=== PATIENT | female | born 1995 | race Caucasian/White ===

== ENCOUNTER 2023-06-21 16:43 | Emergency (ER) | payer BC, SELFPAY ==
[2023-06-21 16:46] VITALS: BP 134/93; BMI 23.2
[2023-06-21 18:20] VITALS: BMI 24.7
--- NOTE | 2023-06-21 18:49 | ED.GENMED ---
History of Present Illness
General
Chief Complaint: Dental Problem
Source: patient
Exam Limitations: none
Time Seen by Provider: 06/21/23 18:34
Travel History
Have you had any contact with someone who has COVID-19?: No
Do you have any symptoms of coronavirus? Fever > 100 degrees, chills, cough, shortness of breath, sore throat, loss of taste or smell, muscle aches, or headache?: No
History of Present Illness
History of Present Illness:
this is a 28yo female who presents with L lower jaw swelling. she states that she started with sx's 2 days ago. she saw her pcp today and was told she needed a CT of her neck. the pt could not get one scheduled and pcp wanted her to come to the ED.
she was told in the past that she needed a root canal on her L lower molar in the past but she did not pursue
Past History
Past History
ED Past Medical History: Other (possible MS (MR showed a demyelinating lesion))
Phy Exam
Physical Exam
Physical Exam:
CONSTITUTIONAL Vital signs reviewed, Patient alert and oriented to person, place and time. Well-appearing
HEAD atraumatic, normocephalic.
EYES eyelids normal to inspection, Extraocular muscles intact, Conjunctiva normal, Sclera normal.
ENT clear tenderness to palpation tooth 18. L mandibular TTP and swelling noted that is mild. no drainable fluctuance noted.
NECK normal range of motion, Trachea midline, no jugular venous distention.
RESP no respiratory distress
BACK No obvious deformities
UPPER EXTREMITY Gross Range of motion normal, gross motor strength normal
LOWER EXTREMITY Gross range of motion normal, Gross motor strength normal
NEURO Speech normal, No focal motor deficits include, James coma scale 15, Memory normal, Cranial Nerves intact to screening exam.
SKIN Skin warm, dry, and normal in color.
PSYCHIATRIC Patient oriented to person place and time, Normal affect.
Course
Orders/Labs/Results
Orders:
Orders
06/21/23 18:47
Penicillin V Potassium [Pen Vk] 500 mg PO NOW STA
Vital Signs
Initial and Last Documented VS:
Initial Vital Signs
Temp Pulse Resp BP Pulse Ox
98.7 F 85 16 134/93 100
06/21/23 16:46 06/21/23 16:46 06/21/23 16:46 06/21/23 16:46 06/21/23 16:46
Last Documented Vital Signs
Temp Pulse Resp BP Pulse Ox
98.7 F 85 16 134/93 100
06/21/23 16:46 06/21/23 16:46 06/21/23 16:46 06/21/23 16:46 06/21/23 16:46
MDM/Problems Addressed
MDM/Problems Addressed:
dental abscess
*Pulse Oximetry
Patient hypoxic: no
*Critical Care Note
Total Time (30-74mins, 75-104mins- exclusive of procedures): Not Applicable
Data Reviewed
Source: patient and family
Further Testing Considered But Not Given:
Consider CTA but clearly has a dental abscess. Neck is benign. No stridor
Patient Management
Escalation/DeEscalation of care consider admission/obs:
Clear dental abscess. Outpatient follow-up with dental. Treat with antibiotics. CT unnecessary.
ED Attending Note
-
Portions of this chart may have been created with voice recognition software.� Occasional wrong word or��sound alike� substitutions may have occurred due to the inherent limitations of voice recognition software.
Discharge Plan
Departure
Patient Disposition: Home (Routine Discharge)
Date of Disposition: 06/21/23
Time of Disposition: 18:53
Patient with high blood pressure during this ER visit?: Yes
Discharge Problem:
Abscess, dental
Instructions: Tooth Abscess (DC), BLOOD PRESSURE
Prescriptions:
New
penicillin V potassium 500 mg tablet
500 mg PO QID Qty: 28 0RF
No Action
levocetirizine [Xyzal] 5 mg Tablet
5 mg PO DAILY
Activity Restrictions/Additional Instructions:
Please see your dentist in the next 3 to 5 days for follow-up and reevaluation. Return immediately for fevers, vomiting, worsening symptoms or any other concerns.
Interventions
Interventions:
*Risk Screen - Suicide Last Done: 06/21/23 16:46
*General Assessment Last Done: 06/21/23 18:20
*Neglect/Abuse Screening Last Done: 06/21/23 16:46
ED- Fall Risk Assessment Last Done: 06/21/23 19:07
*ED COVID-19 Vaccine History Last Done: 06/21/23 16:46
*Nursing Disposition Last Done: 06/21/23 19:07
Discharge Date and Time
Print Language: FRENCH
[2023-06-21] MEDS: PEN VK 500 MG PO (19:03)
== END 2023-06-21 19:07 | disposition home or self-care (01) ==
LOC: EMR 16:43
PROVIDERS: EMERGENCY PHYSICIAN Emergency Medicine; FAMILY PHYSICIAN Family Medicine
DX: K04.7 Periapical abscess without sinus (principal); R03.0 Elevated blood-pressure reading, without diagnosis of hypertension
CPT/HCPCS: 99283

== ENCOUNTER 2023-12-26 15:42 | Emergency (ER) | payer BC, SELFPAY ==
[2023-12-26 15:42] VITALS: BMI 24.5
[2023-12-26 15:46] VITALS: BP 141/86
--- NOTE | 2023-12-26 15:48 | ED.GENMED ---
ED Provider Triage
<Raysa Morris PA-C - Last Filed: 12/26/23 15:51>
-
Patient seen by provider in Triage?: Seen in Triage
Attestation: A medical screening examination has been initiated by a qualified medical provider. Based on the assessment performed at this time, it has been determined that an emergent medical condition may exist and the patient has been informed
that further medical evaluation and possible additional diagnostic testing may be needed.
HPI: 28yoF here with atraumatic bruising x 1.5 weeks. Outpatient labs showed a platelet count of 15. No hx of hematologic disorders. Platelets were normal in June 2023.
GENERAL: Alert , in no apparent distress
EYE: No visual abnormalities.
NECK: Trachea midline
ENT: No visible abnormalities.
LUNGS: No acute respiratory distress
NEUROLOGICAL: Alert and oriented
SKIN: Skin intact. No visible changes.
MUSCULOSKELETAL: Moving extremities normally
PSYCH: Normal and appropriate interaction.
This is a medical evaluation conducted in person to initiate diagnostic evaluation and provide initial therapeutics. Please see further documentation by the treating clinician.
CBC, CMP, coags, HCG, and type and screen ordered.
History of Present Illness
<Raysa Morris PA-C - Last Filed: 12/26/23 15:51>
General
Chief Complaint: Abnormal Lab Value
Time Seen by Provider: 12/26/23 17:12
<Nate Nice Jr., PA-C - Last Filed: 12/26/23 18:55>
General
Source: patient and family
Exam Limitations: none
Nursing documentation reviewed up to this point in time: agreed with
History of Present Illness
History of Present Illness:
28-year-old female presenting to the emergency department today with concerns of low platelets found as an outpatient. It was 12 with outpatient labs with the primary care doctor. She had petechiae last week which seems to be improving but
otherwise does have some new bruising. Patient without any additional noticeable bleeding no chest pain shortness of breath no recent illnesses.
Past History
<Raysa Morris PA-C - Last Filed: 12/26/23 15:51>
Past History
ED Past Medical History: Other (possible MS (MR showed a demyelinating lesion))
Review of Systems
<Nate Nice Jr., PA-C - Last Filed: 12/26/23 18:55>
Review of Systems
Allergies reviewed?: Yes
All Other Systems: ROS reviewed and negative except as documented in HPI and ROS
Phy Exam
<Nate Nice Jr., PA-C - Last Filed: 12/26/23 18:55>
Physical Exam
Physical Exam:
GENERAL: Alert , in no apparent distress
EYE: pupils equal and reactive
NECK: Supple, no significant adenopathy.
ENT: o/p clr, mmm.
CARDIAC: Regular rate and rhythm .
LUNGS: Clear breath sounds bilaterally, no acute respiratory distress, no wheezes/rales/rhonchi
ABDOMEN: Soft, without focal tenderness, no r/g, no cvat
NEUROLOGICAL: Alert and oriented, no focal neuro deficits
SKIN: Scattered bruising throughout the upper and lower extremities no significant petechiae warm and dry, skin intact.
MUSCULOSKELETAL: No edema, well perfused.
PSYCH: Normal and appropriate interaction.
Course
<Raysa Morris PA-C - Last Filed: 12/26/23 15:51>
Orders/Labs/Results
Orders:
Orders
12/26/23 15:50
Test Result ONCE
12/26/23 16:05
Type+Screen Urgent
Complete Blood Count/With Diff Urgent
Comprehensive Metabolic Panel Urgent
HCG, Serum Qualitative Screen Urgent
PTT Urgent
Prothrombin Time Urgent
12/26/23 17:03
ABO2 Urgent
BBK Wristband Number:
Associate notified that ABO2 has been ordered: [id number]
Date: 12/26/23
Time: 16:17
Process Supervisor ID: [id number]
Abnormal Lab Results
12/26/23
16:05
RBC 3.87 L 10^6/uL
(4.20-5.40)
Hct 33.1 L %
(37.0-47.0)
MCH 31.8 H pg
(27.0-31.0)
MCHC 37.2 H g/dL
(33.0-37.0)
Plt Count 18 L* 10^3/uL
(130-400)
MPV 12.8 H fL
(7.4-10.4)
Creatinine 0.5 L mg/dL
(0.6-1.0)
Glucose 102 H mg/dl
(70-99)
12/26/23 16:05
12/26/23 16:05
Vital Signs
Initial and Last Documented VS:
Initial Vital Signs
Temp Pulse Resp BP Pulse Ox
98.2 F 104 18 141/86 100
12/26/23 15:46 12/26/23 15:46 12/26/23 15:46 12/26/23 15:46 12/26/23 15:46
Last Documented Vital Signs
Temp Pulse Resp BP Pulse Ox
98.3 F 87 14 128/83 100
12/26/23 16:00 12/26/23 16:00 12/26/23 16:00 12/26/23 16:00 12/26/23 16:00
<Nate Nice Jr., PA-C - Last Filed: 12/26/23 18:55>
Orders/Labs/Results
Orders:
Orders
12/26/23 15:50
Test Result ONCE
12/26/23 16:05
Type+Screen Urgent
Complete Blood Count/With Diff Urgent
Comprehensive Metabolic Panel Urgent
HCG, Serum Qualitative Screen Urgent
PTT Urgent
Prothrombin Time Urgent
12/26/23 17:03
ABO2 Urgent
BBK Wristband Number:
Associate notified that ABO2 has been ordered: [id number]
Date: 12/26/23
Time: 16:17
Process Supervisor ID: [id number]
Abnormal Lab Results
12/26/23
16:05
RBC 3.87 L 10^6/uL
(4.20-5.40)
Hct 33.1 L %
(37.0-47.0)
MCH 31.8 H pg
(27.0-31.0)
MCHC 37.2 H g/dL
(33.0-37.0)
Plt Count 18 L* 10^3/uL
(130-400)
MPV 12.8 H fL
(7.4-10.4)
Creatinine 0.5 L mg/dL
(0.6-1.0)
Glucose 102 H mg/dl
(70-99)
12/26/23 16:05
12/26/23 16:05
Vital Signs
Initial and Last Documented VS:
Initial Vital Signs
Temp Pulse Resp BP Pulse Ox
98.2 F 104 18 141/86 100
12/26/23 15:46 12/26/23 15:46 12/26/23 15:46 12/26/23 15:46 12/26/23 15:46
Last Documented Vital Signs
Temp Pulse Resp BP Pulse Ox
98.3 F 87 14 128/83 100
12/26/23 16:00 12/26/23 16:00 12/26/23 16:00 12/26/23 16:00 12/26/23 16:00
<Edreggie Nice Jr., PA-C - Last Filed: 12/26/23 18:55>
MDM/Problems Addressed
MDM/Problems Addressed:
28-year-old female presenting to the emergency department today with concerns of low platelets. Level of 18 here. Patient had some petechiae last week now some new episodes of bruising. Case was discussed with hematology pending prednisone 60 mg
daily and PPI otherwise will need CBC twice weekly and close outpatient follow-up. Stable for outpatient management return precautions given.
<Nate Nice Jr., PA-C - Last Filed: 12/26/23 18:55>
*Critical Care Note
Total Time (30-74mins, 75-104mins- exclusive of procedures): Not Applicable
ED Attending Note
<Raysa Morris PA-C - Last Filed: 12/26/23 15:51>
-
Portions of this chart may have been created with voice recognition software.� Occasional wrong word or��sound alike� substitutions may have occurred due to the inherent limitations of voice recognition software.
Discharge Plan
Departure
Patient Disposition: Home (Routine Discharge)
Date of Disposition: 12/26/23
Time of Disposition: 18:50
Patient with high blood pressure during this ER visit?: No
Condition: Good
Covid-19: Not Applicable
Discharge Problem:
Thrombocytopenia
Instructions: Immune thrombocytopenia (ITP)
Prescriptions:
New
prednisone 20 mg tablet
60 mg PO DAILY 6 Days Qty: 18 0RF
pantoprazole 40 mg tablet,delayed release (DR/EC)
40 mg PO DAILY Qty: 14 0RF
No Action
levocetirizine [Xyzal] 5 mg Tablet
5 mg PO DAILY
penicillin V potassium 500 mg tablet
500 mg PO QID Qty: 28 0RF
Referrals:
Kendell De Santiago, [Active] - Follow up in 5-7 days
Jose Augustine MD [Family Provider] -
Activity Restrictions/Additional Instructions:
You came to the emergency department today with concerns of low platelets. Here your platelet count was 18. Case was discussed with hematology they recommend 60 mg of prednisone daily as well as starting Protonix daily. Please follow closely with
the credit union manager and get a CBC twice weekly for close monitoring. Immediately return to the emergency department any worsening, new or concerning symptoms.
Interventions
Interventions:
*Risk Screen - Suicide Last Done: 12/26/23 15:46
*General Assessment Last Done: 12/26/23 15:46
*Neglect/Abuse Screening Last Done: 12/26/23 15:46
*ED COVID-19 Vaccine History Last Done: 12/26/23 15:46
Discharge Date and Time
Print Language: BURMESE
[2023-12-26 16:00] VITALS: BP 128/83
[2023-12-26 16:22] LABS: INR 1.05; PT 13.5 Sec (11.4-14.6)
[2023-12-26 16:23] LABS: APTT 29.2 Sec (23.4-35.0)
[2023-12-26 16:30] LABS: % Basophils 0.7 % (0-2); % Eosinophils 0.7 % (0-6); % Immature Granulocytes 0.3 % (0-0.5); % Lymphocytes 21.4 % (20.5-51.1); % Monocytes 3.6 % (1.7-9.3); % Neutrophils 73.3 % (42.2-75.2); Absolute Basophils 0.1 10^3/uL (0-0.2); Absolute Eosinophils 0.1 10^3/uL (0-0.7); Absolute Lymphocytes 1.5 10^3/uL (1.2-3.4); Absolute Monocytes 0.3 10^3/uL (0.1-0.6); Absolute Neutrophils 5.3 10^3/uL (1.4-6.5); Hematocrit 33.1 % (37.0-47.0); Hemoglobin 12.3 g/dL (12.0-16.0); Mean Corp Hgb Conc. 37.2 g/dL (33.0-37.0); Mean Corpuscular Hgb 31.8 pg (27.0-31.0); Mean Corpuscular Volume 85.5 fL (81.0-99.0); Mean Platelet Volume 12.8 fL (7.4-10.4); Nucleated Red Blood Cells % 0 %; Platelet Count 18 10^3/uL (130-400); Red Blood Cell Count 3.87 10^6/uL (4.20-5.40); Red Cell Dist. Width 11.9 % (11.5-14.5); White Blood Cell Count 7.2 10^3/uL (4.8-10.8)
[2023-12-26 16:33] LABS: HCG, Serum Qualitative Screen Negative
[2023-12-26 16:34] LABS: ALT (SGPT) 20 U/L (0-35); AST (SGOT) 32 U/L (14-36); Alkaline Phosphatase 63 U/L (38-126); Blood Urea Nitrogen 12 mg/dl (7-17); Calcium 9.4 mg/dl (8.4-10.2); Carbon Dioxide 23 mmol/L (22-30); Chloride 104 mmol/L (98-107); Glucose 102 mg/dl (70-99); Potassium 3.7 mmol/L (3.5-5.1); Sodium 139 mmol/L (135-145); Total Bilirubin 0.5 mg/dl (0.2-1.3); Total Protein 6.9 g/dl (6.3-8.2); eGFR > 60.00
[2023-12-26] MEDS: PROTONIX 40 MG PO (19:09)
[2023-12-26] MEDS: DELTASONE 60 MG PO (19:11)
== END 2023-12-26 19:39 | disposition home or self-care (01) ==
LOC: EMR 15:42
PROVIDERS: Physician Assistant; EMERGENCY PHYSICIAN Emergency Medicine; FAMILY PHYSICIAN Family Medicine
DX: D69.6 Thrombocytopenia, unspecified (principal)
CPT/HCPCS: 99282; 80053; 84703; 85025; 85610; 85730; 86850; 86900; 86901

== ENCOUNTER 2024-08-26 19:13 | Emergency (ER) | payer BC, SELFPAY ==
[2024-08-26 19:15] VITALS: BP 139/86
[2024-08-26] MEDS: ZOFRAN 4 MG IV (21:11)
[2024-08-26] MEDS: NSS 1000 IV (21:12)
[2024-08-26 21:20] VITALS: BP 108/74
[2024-08-26 21:31] LABS: % Basophils 0.3 % (0-2); % Eosinophils 0.3 % (0-6); % Immature Granulocytes 0.1 % (0-0.5); % Lymphocytes 19.5 % (20.5-51.1); % Neutrophils 73.8 % (42.2-75.2); Absolute Lymphocytes 1.8 10^3/uL (1.2-3.4); Absolute Monocytes 0.6 10^3/uL (0.1-0.6); Absolute Neutrophils 6.8 10^3/uL (1.4-6.5); Hematocrit 34.6 % (37.0-47.0); Hemoglobin 12.8 g/dL (12.0-16.0); Mean Corpuscular Hgb 32.1 pg (27.0-31.0); Mean Corpuscular Volume 86.7 fL (81.0-99.0); Mean Platelet Volume 9.2 fL (7.4-10.4); Nucleated Red Blood Cells % 0 %; Platelet Count 326 10^3/uL (130-400); Red Blood Cell Count 3.99 10^6/uL (4.20-5.40); Red Cell Dist. Width 11.3 % (11.5-14.5); Urine Albumin 2+ (Neg - Trace); Urine Bilirubin Negative (Negative); Urine Character Clear (Clear); Urine Color Yellow; Urine Glucose Negative (Negative); Urine Ketone 3+ (Negative); Urine Leukocyte 1+ (Negative); Urine Nitrite Negative (Negative); Urine Occult Blood 3+ (Negative); Urine Specific Gravity 1.025 (<1.030); Urine Urobilinogen Negative (Neg - 1+); White Blood Cell Count 9.2 10^3/uL (4.8-10.8)
[2024-08-26 21:38] LABS: Urine Squamous Cell >30 /LPF (Few)
[2024-08-26 21:40] LABS: Urine Bacteria Many (Negative)
[2024-08-26 21:42] LABS: Urine Yeast Few (Negative)
[2024-08-26 21:43] LABS: HCG, Serum Qualitative Screen Negative
[2024-08-26 21:48] LABS: ALT (SGPT) 16 U/L (0-35); AST (SGOT) 21 U/L (14-36); Albumin 4.7 g/dl (3.5-5.0); Alkaline Phosphatase 69 U/L (38-126); Blood Urea Nitrogen 13 mg/dl (7-17); Calcium 9.4 mg/dl (8.4-10.2); Carbon Dioxide 16 mmol/L (22-30); Chloride 111 mmol/L (98-107); Glucose 75 mg/dl (70-99); Lipase 48 U/L (23-300); Potassium 4.3 mmol/L (3.5-5.1); Sodium 139 mmol/L (135-145); Total Bilirubin 0.8 mg/dl (0.2-1.3); Total Protein 6.4 g/dl (6.3-8.2); eGFR > 60.00
[2024-08-26 22:00] VITALS: BP 98/68
--- NOTE | 2024-08-27 00:27 | ED.GENMED ---
History of Present Illness
General
Chief Complaint: Abdominal Symptoms
Source: patient
Exam Limitations: none
Time Seen by Provider: 08/26/24 20:38
Nursing documentation reviewed up to this point in time: agreed with
History of Present Illness
History of Present Illness:
Patient to ED with complaint of n/v. Symptoms started this afternoon. Denies fever/chills, abdominal pain, urinary symptoms. To ED accompanied by family
Past History
Past History
ED Past Medical History: Other (possible MS (MR showed a demyelinating lesion))
Review of Systems
Review of Systems
Allergies reviewed?: Yes
All Other Systems: ROS reviewed and negative except as documented in HPI and ROS
Constitutional: Reports no symptoms
EENT: Reports no symptoms
Respiratory: Reports no symptoms
Cardiac: Reports no symptoms
ABD/GI: Reports nausea and vomiting
: Reports no symptoms
Musculoskeletal: Reports no symptoms
Skin: Reports no symptoms
Neurological: Reports no symptoms
Psychiatric: Reports no symptoms
Phy Exam
General Physical Exam
General Presentation: mild distress
General age: appears stated age
General Skin: warm and dry
General Habitus: normal
General Mental: alert
Gastrointestinal Exam
Gastrointestinal Exam: normal bowel sounds, non tender, soft, no organomegaly, no pulsatile mass and non distended
Musculoskeletal Exam
Musculoskeletal Exam: full ROM and neuro vasc intact
Skin Exam
Skin Exam: normal color, warm/dry and no rash
Psychiatric Exam
Psychiatric Exam: normal mood/affect
Course
Orders/Labs/Results
Orders:
Orders
08/26/24 20:54
0.9% Sodium Chloride 1000 ml [Nss] 1,000 ml IV BOLUS
Ondansetron Injectable [Zofran] 4 mg IV NOW STA
08/26/24 20:55
Test Result ONCE
08/26/24 21:08
Complete Blood Count/With Diff Urgent
Comprehensive Metabolic Panel Urgent
HCG, Serum Qualitative Screen Urgent
Lipase Urgent
Urinalysis Reflex To Culture Urgent
Date Specimen was Collected: 08/26/24
Time Specimen was Collected: 20:59
Urine Microscopic Reflex Cult Urgent
Urine Culture Urgent
TRISTAN Source: U
Specimen Description:
Date Specimen was Collected: 08/26/24
Time Specimen was Collected: 20:59
Abnormal Lab Results
08/26/24
21:08
RBC 3.99 L 10^6/uL
(4.20-5.40)
Hct 34.6 L %
(37.0-47.0)
MCH 32.1 H pg
(27.0-31.0)
RDW 11.3 L %
(11.5-14.5)
Absolute Neuts (auto) 6.8 H 10^3/uL
(1.4-6.5)
Lymphocytes % 19.5 L %
(20.5-51.1)
Chloride 111 H mmol/L
(98-107)
Carbon Dioxide 16 L mmol/L
(22-30)
Urine Ketones 3+ A
(Negative)
Ur Occult Blood Reflex 3+ A
(Negative)
Leukocyte Esterase Rfl 1+ A
(Negative)
Urine RBC 3-6 A /HPF
(0-2)
Urine Bacteria (Reflex) Many A
(Negative)
Urine Yeast Few A
(Negative)
Urine Albumin (Reflex) 2+ A
(Neg - Trace)
08/26/24 21:08
08/26/24 21:08
Vital Signs
Initial and Last Documented VS:
Initial Vital Signs
Temp Pulse Resp BP Pulse Ox
98.2 F 98 20 139/86 99
08/26/24 19:15 08/26/24 19:15 08/26/24 19:15 08/26/24 19:15 08/26/24 19:15
Last Documented Vital Signs
Temp Pulse Resp BP Pulse Ox
98.2 F 98 20 98/68 100
08/26/24 19:15 08/26/24 19:15 08/26/24 19:15 08/26/24 22:00 08/26/24 22:15
*Pulse Oximetry
Patient hypoxic: no
*Critical Care Note
Total Time (30-74mins, 75-104mins- exclusive of procedures): Not Applicable
Update Note
Update Note:
Patient to ED with compaint of n/v. Improved with IVF and zofran. Labs reviewed, no concerning findings. Jacquelin is soft, nontender, BS throughout. Tolerating po fluids now and would like to go home. SHe is discharged home, rx for zofran
provided. Given instructions on s/s to return to ED and she is agreeable to plan
ED Attending Note
-
Portions of this chart may have been created with voice recognition software.� Occasional wrong word or��sound alike� substitutions may have occurred due to the inherent limitations of voice recognition software.
Discharge Plan
Departure
Patient Disposition: Home (Routine Discharge)
Date of Disposition: 08/26/24
Time of Disposition: 23:51
Patient with high blood pressure during this ER visit?: No
Condition: Good
Covid-19: Not Applicable
Discharge Problem:
Acute vomiting
Instructions: Clear Liquid Diet, Nausea and Vomiting, Adult (DC)
Prescriptions:
New
ondansetron 4 mg tablet,disintegrating
4 mg PO DAILY PRN (Reason: nausea and vomiting) 4 Days Qty: 12 0RF
No Action
levocetirizine [Xyzal] 5 mg Tablet
5 mg PO DAILY
penicillin V potassium 500 mg tablet
500 mg PO QID Qty: 28 0RF
prednisone 20 mg tablet
60 mg PO DAILY 6 Days Qty: 18 0RF
pantoprazole 40 mg tablet,delayed release (DR/EC)
40 mg PO DAILY Qty: 14 0RF
Referrals:
Jose Augustine MD [Family Provider, Family Practice] - Tomorrow
Activity Restrictions/Additional Instructions:
Return to the emergency department immediately for any changes in/worsening of your symptoms.
Interventions
Interventions:
*Risk Screen - Suicide Last Done: 08/26/24 19:15
*General Assessment Last Done: 08/26/24 19:15
*Neglect/Abuse Screening Last Done: 08/26/24 19:15
*ED- Fall Risk Assessment Last Done: 08/26/24 21:09
*ED COVID-19 Vaccine History Last Done: 08/26/24 21:09
*Nursing Disposition Last Done: 08/27/24 00:00
SX-Nionuw-Phdsrshggz Assessment Last Done: 08/26/24 21:09
Discharge Date and Time
Discharge Date/Time: 08/27/24 00:00
Print Language: THAI
== END 2024-08-27 | disposition home or self-care (01) ==
LOC: EMR 19:13
PROVIDERS: Nurse Practitioner; EMERGENCY PHYSICIAN Student in an Organized Health Care Education/Training Program; FAMILY PHYSICIAN Family Medicine
DX: R11.2 Nausea with vomiting, unspecified (principal)
CPT/HCPCS: 99284; 96374; 96361; 80053; 81003; 81015; 83690; 84703; 85025; 87086

== ENCOUNTER 2024-08-27 17:19 | Inpatient (IN) | payer BC, SELFPAY ==
[2024-08-27 11:36] VITALS: BP 130/86
--- NOTE | 2024-08-27 11:52 | ED.GENMED ---
History of Present Illness
<Jasimn Mancuso PA-C - Last Filed: 08/27/24 23:12>
General
Chief Complaint: Abdominal Symptoms
Source: patient
Exam Limitations: none
Time Seen by Provider: 08/27/24 11:44
Nursing documentation reviewed up to this point in time: agreed with
History of Present Illness
History of Present Illness:
Patient is a 29-year-old female who presents to the emergency department for evaluation of intractable nausea/vomiting and inability to tolerate p.o. intake at home. She reports that the symptoms began on Monday after taking Tylenol on an empty
stomach, which made her feel nauseous, leading to persistent vomiting. She has not been able to keep down water or any food without vomiting.
The patient also reports diarrhea and abdominal pain starting yesterday localized to the lower abdomen. She denies any associated fever, chills, urinary tract infection symptoms, or abnormal vaginal bleeding.
Patient was seen in the emergency department yesterday for similar symptoms however was discharged after symptomatic improvement following IV fluids and IV Zofran. Despite taking Zofran, the patient continues to vomit upon returning home.
Patient does report that she has been on multiple rounds of antibiotics over the past few months for sinusitis.
She denies smoking marijuana despite having a medical card and reports no recent significant dietary changes or exposures to sick contacts.
Past History
<Jasmin Mancuso PA-C - Last Filed: 08/27/24 23:12>
Past History
ED Past Medical History: Other (possible MS (MR showed a demyelinating lesion))
Review of Systems
<Jasmin Mancuso PA-C - Last Filed: 08/27/24 23:12>
Review of Systems
Allergies reviewed?: Yes
All Other Systems: ROS reviewed and negative except as documented in HPI and ROS
Phy Exam
<Jasmin Mancuso PA-C - Last Filed: 08/27/24 23:12>
Physical Exam
Physical Exam:
Vitals: Patient's vital signs are stable. Afebrile
General: No apparent distress.
Skin: Pale. Warm and dry, no rashes or lesions
Head: Normocephalic, atraumatic
Eyes: Sclera nonicteric. EOMs intact. No nystagmus.
Throat: Dry mucous membranes. Protecting airway
Neck: Normal ROM, no cervical spine tenderness, no meningismus
Cardiac: Regular rate and rhythm, no murmurs.
Pulm: Normal respiratory effort, no wheezes, rales, rhonchi heard on exam
.
Abdomen: Abdomen soft. Mild tenderness in left lower abdomen suprapubic region. No rebound tenderness or guarding.
Extremities: No evidence of cyanosis or edema. Palpable DP pulses
Neuro: AAOx3. Grossly intact.
Psychiatric: Normal affect.
Course
<Jasmin Mancuso PA-C - Last Filed: 08/27/24 23:12>
Orders/Labs/Results
Orders:
Orders
08/27/24 Breakfast
Clear Liquid
At Your Request: Full Participation
08/27/24 12:04
CDIFF [C difficile Antigen & Toxins] Urgent
TRISTAN Source: Feces/Stool
Specimen Description:
Stool Culture Urgent
TRISTAN Source: Feces/Stool
Specimen Description:
0.9% Sodium Chloride 1000 ml [Nss] 1,000 ml IV BOLUS
Famotidine [Pepcid] 20 mg IV NOW STA
Ondansetron Injectable [Zofran] 4 mg IV NOW STA
Test Result ONCE
08/27/24 12:05
CT Abd/pelvis W Iv Cont Urgent
Comment:
Reason For Exam: Intractable N/V, lower abdominal pain
08/27/24 12:16
Complete Blood Count/With Diff Urgent
Comprehensive Metabolic Panel Urgent
HCG, Serum Qualitative Screen Urgent
Lipase Urgent
08/27/24 15:[address] [CT Sinuses W/o Iv Contrast] Urgent
Comment:
Reason For Exam: Right facial swelling
08/27/24 16:00
Dextrose 5%/0.45%Sodchl 1000ML [D5/0.45%NaCl] 1,000 ml IV 250 mls/hr
08/27/24 17:08
Admit/Transfer Patient As Directed
Co-Sign Provider:
Level of Care: Inpatient admission
Assign to:: Medical/Surgical
Physician / Group: mayela
Diagnosis: n/v
Reason for Hospitalization: n/v
Expected length of stay greater than two midnights?: Yes
ELOS- Estimated Length of Stay in days: 3
I certify the patient meets the requirements for IP care: Yes
Code Status As Directed
Resuscitation Status: Full Code
PRN Pain Medication Management As Directed
May give lesser potent ordered pain med per pt: Yes
preference::
Protocol:: Medication orders for pain may be administered in a
manner that supports deferring to patient preference
when the pt is:
- Requesting an ordered lesser potent pain medication.
Least to most potent pain medications are defined
as: acetaminophen < NSAID < tramadol < opioids
(morphine, oxycodone, hydromorphone).
- Requesting a lesser dose of the same medication IF
ORDERED.
- Requesting a less intrusive route of administration
if both routes are prescribed by the provider (PO <
IV).
08/27/24 18:35
0.9% Sodium Chloride 1000 ml [Nss] 1,000 ml IV 80 mls/hr
Acetaminophen [Tylenol] 650 mg PO Q4HPRN PRN
Sodium Bicarbonate 50 meq IV NOW STA
Accucheck [Bedside Glucose Monitoring] DIRECTED
Frequency: q4h
08/27/24 18:35
Activity As Directed
Activity Level: As Tolerated
Pneumatic Compression Sleeves As Directed
Type: Knee high
Vital Signs As Directed
Frequency: Per unit guidelines
DX Deep Vein Thrombosis Video Routine
08/28/24 06:00
Basic Metabolic Panel IN AM
08/29/24 06:00
Basic Metabolic Panel IN AM
08/30/24 06:00
Basic Metabolic Panel IN AM
Abnormal Lab Results
08/27/24 08/27/24 08/27/24
12:16 14:15 15:19
RBC 3.90 L 10^6/uL
(4.20-5.40)
Hct 34.8 L %
(37.0-47.0)
MCH 32.1 H pg
(27.0-31.0)
Neutrophils % 80.2 H %
(42.2-75.2)
Lymphocytes % 15.5 L %
(20.5-51.1)
Chloride 112 H mmol/L
(98-107)
Carbon Dioxide 15 L mmol/L
(22-30)
Glucose 62 L mg/dl
(70-99)
POC Glucose 56 L mg/dl 59 L mg/dl
(70-99) (70-99)
08/27/24 12:16
08/27/24 12:16
Vital Signs
Initial and Last Documented VS:
Initial Vital Signs
Temp Pulse Resp BP Pulse Ox
98.1 F 83 16 130/86 99
08/27/24 11:36 08/27/24 11:36 08/27/24 11:36 08/27/24 11:36 08/27/24 11:36
Last Documented Vital Signs
Temp Pulse Resp BP Pulse Ox
98.7 F 91 16 111/71 99
08/27/24 18:37 08/27/24 18:37 08/27/24 18:37 08/27/24 18:37 08/27/24 18:37
<Senthil Sotelo MD - Last Filed: 08/27/24 15:16>
Orders/Labs/Results
Orders:
Orders
08/27/24 Breakfast
Clear Liquid
At Your Request: Full Participation
08/27/24 12:04
CDIFF [C difficile Antigen & Toxins] Urgent
TRISTAN Source: Feces/Stool
Specimen Description:
Stool Culture Urgent
TRISTAN Source: Feces/Stool
Specimen Description:
0.9% Sodium Chloride 1000 ml [Nss] 1,000 ml IV BOLUS
Famotidine [Pepcid] 20 mg IV NOW STA
Ondansetron Injectable [Zofran] 4 mg IV NOW STA
Test Result ONCE
08/27/24 12:05
CT Abd/pelvis W Iv Cont Urgent
Comment:
Reason For Exam: Intractable N/V, lower abdominal pain
08/27/24 12:16
Complete Blood Count/With Diff Urgent
Comprehensive Metabolic Panel Urgent
HCG, Serum Qualitative Screen Urgent
Lipase Urgent
08/27/24 15:[address] [CT Sinuses W/o Iv Contrast] Urgent
Comment:
Reason For Exam: Right facial swelling
08/27/24 16:00
Dextrose 5%/0.45%Sodchl 1000ML [D5/0.45%NaCl] 1,000 ml IV 250 mls/hr
08/27/24 17:08
Admit/Transfer Patient As Directed
Co-Sign Provider:
Level of Care: Inpatient admission
Assign to:: Medical/Surgical
Physician / Group: mayela
Diagnosis: n/v
Reason for Hospitalization: n/v
Expected length of stay greater than two midnights?: Yes
ELOS- Estimated Length of Stay in days: 3
I certify the patient meets the requirements for IP care: Yes
Code Status As Directed
Resuscitation Status: Full Code
PRN Pain Medication Management As Directed
May give lesser potent ordered pain med per pt: Yes
preference::
Protocol:: Medication orders for pain may be administered in a
manner that supports deferring to patient preference
when the pt is:
- Requesting an ordered lesser potent pain medication.
Least to most potent pain medications are defined
as: acetaminophen < NSAID < tramadol < opioids
(morphine, oxycodone, hydromorphone).
- Requesting a lesser dose of the same medication IF
ORDERED.
- Requesting a less intrusive route of administration
if both routes are prescribed by the provider (PO <
IV).
08/27/24 18:35
0.9% Sodium Chloride 1000 ml [Nss] 1,000 ml IV 80 mls/hr
Acetaminophen [Tylenol] 650 mg PO Q4HPRN PRN
Sodium Bicarbonate 50 meq IV NOW STA
Accucheck [Bedside Glucose Monitoring] DIRECTED
Frequency: q4h
08/27/24 18:35
Activity As Directed
Activity Level: As Tolerated
Pneumatic Compression Sleeves As Directed
Type: Knee high
Vital Signs As Directed
Frequency: Per unit guidelines
DX Deep Vein Thrombosis Video Routine
08/28/24 06:00
Basic Metabolic Panel IN AM
08/29/24 06:00
Basic Metabolic Panel IN AM
08/30/24 06:00
Basic Metabolic Panel IN AM
Abnormal Lab Results
08/27/24 08/27/24 08/27/24
12:16 14:15 15:19
RBC 3.90 L 10^6/uL
(4.20-5.40)
Hct 34.8 L %
(37.0-47.0)
MCH 32.1 H pg
(27.0-31.0)
Neutrophils % 80.2 H %
(42.2-75.2)
Lymphocytes % 15.5 L %
(20.5-51.1)
Chloride 112 H mmol/L
(98-107)
Carbon Dioxide 15 L mmol/L
(22-30)
Glucose 62 L mg/dl
(70-99)
POC Glucose 56 L mg/dl 59 L mg/dl
(70-99) (70-99)
08/27/24 12:16
08/27/24 12:16
Vital Signs
Initial and Last Documented VS:
Initial Vital Signs
Temp Pulse Resp BP Pulse Ox
98.1 F 83 16 130/86 99
08/27/24 11:36 08/27/24 11:36 08/27/24 11:36 08/27/24 11:36 08/27/24 11:36
Last Documented Vital Signs
Temp Pulse Resp BP Pulse Ox
98.7 F 91 16 111/71 99
08/27/24 18:37 08/27/24 18:37 08/27/24 18:37 08/27/24 18:37 08/27/24 18:37
<Jasmin Mancuso PA-C - Last Filed: 08/27/24 23:12>
MDM/Problems Addressed
Differential Diagnosis Includes:
Not limited to: Gastritis, foodborne illness, C. difficile, IBS, pancreatitis, cyclical vomiting, etc.
MDM/Problems Addressed:
The patient, a 29-year-old female, presented to the emergency department with complaints of persistent nausea, vomiting, and newly developed lower abdominal discomfort. She had previously visited the ED last night, where she received intravenous
fluids and Zofran, after which she was discharged. However, upon returning home, she continued to experience intractable vomiting and was unable to tolerate oral intake. In the emergency department, she appeared stable and afebrile. Physical exam as
above. ED plan: labs, IVF, IV zofran, IV pepcid and given new onset abdominal discomfort- will obtain CT scan.
Update: Labs reviewed. CBC without clinically significant abnormalities. Chemistry reveals a metabolic acidosis and hypoglycemia likely secondary to poor PO intake. CT scan with possible ruptured adnexal cyst however no acute infectious pathology
identified. Ultimately suspect gastroenteritis. While patient has not vomited while in ED given significant acidosis and hypoglycemia feel patient should be admitted to hospital for further evaluation/management. Patient given D5 1/2 NS in ED.
Patient accepted to hospitalist service in stable condition.
Chronic conditions affecting care:
ITP
Acute Exacerbation and/or Progression of Chronic Illness:
N/A
<Jasmin Mancuso PA-C - Last Filed: 08/27/24 23:12>
*Radiology
Radiology exam reviewed: radiology read reviewed
*Pulse Oximetry
Patient hypoxic: no (99% on room air)
*EKG
Interpreted by ED Provider?: NA
*Clinical Assessment Manager Interpretation
Rate: Clinical Assessment Manager- N/A
*Critical Care Note
Total Time (30-74mins, 75-104mins- exclusive of procedures): Not Applicable
Data Reviewed
Review of Other/Old Records Reveals: Discharge Summary (ED discharge note from 08/26/2024 after presentation for similar symptoms-patient treated with IV fluids, IV Zofran with improvement in symptoms and discharged home)
<Jasmin Mancuso PA-C - Last Filed: 08/27/24 23:12>
Patient Management
Discussion with other providers: Hospitalist
Escalation/DeEscalation of care consider admission/obs:
Admit for further management given acidosis and hypoglycemia secondary to poor PO intake/ GI losses
ED Attending Note
<Jasmin Mancuso PA-C - Last Filed: 08/27/24 23:12>
-
Portions of this chart may have been created with voice recognition software.� Occasional wrong word or��sound alike� substitutions may have occurred due to the inherent limitations of voice recognition software.
<Senthil Sotelo MD - Last Filed: 08/27/24 15:16>
ED Attending Note
Patient seen and examined by attending physician: Yes
I performed the substantive portion of visit, reviewed & personally made and approve the management plan that is documented in note by myself or MONTEZ.: Yes
ED Attending Note:
Patient presents with ongoing and recurring vomiting. Was seen last night for same. Started vomiting again last night. Minimal epigastric pain. Some right cheek swelling. History of sinusitis. On immunosuppressive meds for ITP.
On exam patient is nontoxic in no distress. She has mild right cheek swelling. Teeth are normal. No intraoral issues. Neck is supple. Lungs are clear and equal. Abdomen is soft and nontender. Warm and dry perfusing well.
Labs show borderline hyperglycemia ongoing metabolic acidosis.
Given these ongoing issues along with being immunosuppressed I feel it prudent for patient to stay in the hospital. Will start D5 normal saline solution. Also will CT her sinuses.
Discharge Plan
Departure
Patient Disposition: Admit
Date of Disposition: 08/27/24
Time of Disposition: 16:26
Presentation/result/management discussed w/ accepting MD/DO: Hospitalist
Discharge Problem:
Hypoglycemia, Intractable nausea and vomiting
Interventions
Interventions:
*Risk Screen - Suicide Last Done: 08/27/24 11:36
*General Assessment Last Done: 08/27/24 11:40
*Neglect/Abuse Screening Last Done: 08/27/24 11:36
*ED- Fall Risk Assessment Last Done: 08/27/24 11:40
*ED COVID-19 Vaccine History Last Done: 08/27/24 11:40
*Nursing Disposition Last Done: 08/27/24 18:35
RA-Daflaf-Bjfjlxkxeq Assessment Last Done: 08/27/24 11:40
Discharge Date and Time
Discharge Date/Time: 08/27/24 18:36
[2024-08-27] MEDS: ZOFRAN 4 MG IV (12:14)
[2024-08-27] MEDS: PEPCID 20 MG IV (12:14)
[2024-08-27] MEDS: NSS 1000 IV ×2 (12:15→18:47)
[2024-08-27 12:22] VITALS: BP 115/79
[2024-08-27 12:33] LABS: % Basophils 0.4 % (0-2); % Eosinophils 0.1 % (0-6); % Immature Granulocytes 0.3 % (0-0.5); % Lymphocytes 15.5 % (20.5-51.1); % Monocytes 3.5 % (1.7-9.3); % Neutrophils 80.2 % (42.2-75.2); Absolute Lymphocytes 1.2 10^3/uL (1.2-3.4); Absolute Monocytes 0.3 10^3/uL (0.1-0.6); Absolute Neutrophils 6.2 10^3/uL (1.4-6.5); Hematocrit 34.8 % (37.0-47.0); Hemoglobin 12.5 g/dL (12.0-16.0); Mean Corp Hgb Conc. 35.9 g/dL (33.0-37.0); Mean Corpuscular Hgb 32.1 pg (27.0-31.0); Mean Corpuscular Volume 89.2 fL (81.0-99.0); Mean Platelet Volume 9.1 fL (7.4-10.4); Nucleated Red Blood Cells % 0 %; Platelet Count 294 10^3/uL (130-400); Red Cell Dist. Width 11.7 % (11.5-14.5); White Blood Cell Count 7.7 10^3/uL (4.8-10.8)
[2024-08-27 12:47] LABS: ALT (SGPT) 16 U/L (0-35); AST (SGOT) 23 U/L (14-36); Albumin 4.5 g/dl (3.5-5.0); Alkaline Phosphatase 67 U/L (38-126); Blood Urea Nitrogen 11 mg/dl (7-17); Calcium 9.1 mg/dl (8.4-10.2); Carbon Dioxide 15 mmol/L (22-30); Chloride 112 mmol/L (98-107); Glucose 62 mg/dl (70-99); HCG, Serum Qualitative Screen Negative; Lipase 60 U/L (23-300); Potassium 4.5 mmol/L (3.5-5.1); Sodium 140 mmol/L (135-145); Total Bilirubin 0.8 mg/dl (0.2-1.3); Total Protein 6.4 g/dl (6.3-8.2); eGFR > 60.00
[2024-08-27 14:16] LABS: Glucose - Point of Care 56 mg/dl (70-99)
[2024-08-27 15:20] LABS: Glucose - Point of Care 59 mg/dl (70-99)
[2024-08-27] MEDS: D5/0.45%NACL 1000 IV (15:44)
[2024-08-27 15:47] VITALS: BP 108/62
[2024-08-27 16:00] VITALS: BP 108/70
--- NOTE | 2024-08-27 16:42 | HPS.HSE ---
Family Physician
-
Family Physician: Jose Augustine MD
Chief Complaint
-
intractable nausea and vomitting.
History of Present Illness
29-year-old female with past medical history for sinusitis, ADD, migraines, neck pain, GERD, psoriasis who presents to the emergency department for evaluation of intractable nausea/vomiting and inability to tolerate p.o. intake at home since Monday.
She reports that the symptoms began on Monday after taking Tylenol on an empty stomach for facial pain from sinusitis which made her feel nauseous, leading to persistent vomiting. She has not been able to keep down water or any food without
vomiting. patient has chronic diarrhea. she is having some lower abdominal pain. she complained of chills. denied fever. she is complained of LEWIS, and dizzy. denied cough, congestion. denied dysuria or hematuria. she was on abx endo of June.
CT abdomen pelvis with no acute findings
CT of sinuses pending
Patient was noted hypoglycemic on arrival. Patient received fluids with D5. She also received a dose of Pepcid and Zofran in ER. C. difficile and stool cultures ordered in ER
Medical History
Past Medical History
Past Medical History: Reports Other
Additional Past Medical History:
Sinusitis
ITP
Migraines
Neck pain
GERD
Psoriasis
Past Surgical History: Reports Other
Additional Past Surgical History:
Oral surgery
Bone biopsy
Social History
Tobacco: Non-smoker
Alcohol: None
Drug: None
Living: With Family
Family History
Family History: Not pertinent
Allergies / Home Medications
Allergies reflects when Allergies were last updated in [facility].
Home Medications with original date entered in [facility] [facility]
Allergy/Medication List:
Allergies
Allergy/AdvReac Type Severity Reaction Status Date / Time
grape flavor Allergy Unknown Hives Verified 08/26/24 19:15
Sulfa (Sulfonamide Allergy Unknown Hives Verified 08/26/24 19:15
Antibiotics)
Home Medications
levocetirizine 5 mg tablet (Xyzal) 5 mg PO DAILY 03/29/23
penicillin V potassium 500 mg tablet 500 mg PO QID #28 tabs 06/21/23
pantoprazole 40 mg tablet,delayed release 40 mg PO DAILY #14 tabs 12/26/23
prednisone 20 mg tablet 60 mg (3 x 20 mg) PO DAILY 6 days #18 tabs 12/26/23
ondansetron 4 mg disintegrating tablet 4 mg PO DAILY PRN nausea and vomiting 4 days #12 tabs 08/26/24
Review of Systems
-
Constitutional: Reports Chills
EENT: Reports No Symptoms
Respiratory: Reports No Symptoms
Cardiac: Reports No Symptoms
Abdomen/GI: Reports Abdominal Pain, Nausea and Vomiting
: Reports No Symptoms
Musculoskeletal: Reports No Symptoms
Skin: Reports No Symptoms
Neurological: Reports No Symptoms
Endocrine: Reports No Symptoms
Hematologic/Lymphatic: Reports No Symptoms
Psych: Reports No Symptoms
Physical Exam
Vital Signs
Vital Signs
Temp Pulse Resp BP Pulse Ox
98.1 F 83 16 108/70 100
08/27/24 11:36 08/27/24 11:36 08/27/24 11:36 08/27/24 16:00 08/27/24 16:15
Physical Exam
General: Well Developed, Well Nourished and No Apparent Distress
HEENT: NormoCephalic, Moist mucous membranes and Atraumatic
Respiratory: Clear
Cardiac: S1/S2 and Regular Rhythm; No Murmur or Rub
GI: Soft, Non Tender, Non Distended and Normal Bowel Sounds; No Organomegaly
Rectal: Deferred by Provider
Musculoskeletal: No Clubbing, No Cyanosis and No Edema
Skin: No Rash
Neuro: AO x 3 and Nonfocal/grossly intact
Psych: Calm
Laboratory Results
-
08/27/24 12:16
08/27/24 12:16
Laboratory Results
Total Bilirubin 0.8 mg/dl (0.2-1.3) 08/27/24 12:16
AST 23 U/L (14-36) 08/27/24 12:16
ALT 16 U/L (0-35) 08/27/24 12:16
Alkaline Phosphatase 67 U/L (38-126) 08/27/24 12:16
Lipase 60 U/L (23-300) 08/27/24 12:16
Data Reviewed
-
CT Scan: Report Reviewed by me
Lab Data: Labs Reviewed by me
Impression/Plan
-
# Hypoglycemia secondary to poor oral intake/n/v
-continue to monitor
# intractable vomiting/abdominal pain unclear cause likely gastroenteritis
#chronic diarrhea
- CT abdomen pelvis with Likely small partially ruptured right adnexal/ovarian cyst with small volume free fluid in the right adnexa and right side of cul-de-sac.No intestinal obstruction, right lower quadrant inflammatory changes or free air,
intestinal tract1 limited without oral contrast.Three subcentimeter low-attenuation hepatic lesions too small to characterize.
- Stool for C. difficile, stool culture sent
-clear liquid diet, advance as tolerated
-ctm
# Metabolic acidosis likely due to GI losses/dehydration
- CO2 15
- Fluids continued for hydration
-bicarb push in ER.
# Right facial swelling/history of recent sinusitis
- CT sinuses pending
#hxt of sinusitis
-last use of abx was in June
#hxt of ITP
#migraines
#hx tof psoriasis
#DVT prophylaxis
-scd
#CODE status
-full code
--- NOTE | 2024-08-27 17:28 | W.PN.UPDATE ---
Update Note
Progress Note Update
This is an addendum to H&P written by Coretta Boucher 08/27/2024. �Patient seen and examined independently with WIRELESS TECHNICIAN.
29-year-old female past medical history of ITP, chronic sinusitis, migraines, GERD, psoriasis, chronic diarrhea from significant antibiotics recently for sinusitis presenting with vomiting since past 2 days and bilateral lower abdominal pain. �No
fever or chills.
Also with right facial pain chronic.
Patient was dizzy here and had blood sugar of 62. �She was given dextrose. �Labs show a bicarb of 15 with nongap metabolic acidosis.
CT abdomen pelvis shows likely small partially ruptured right adnexal/ovarian cyst with small volume free fluid in the right adnexa and right cul-de-sac.
Patient with likely viral gastroenteritis with metabolic acidosis from GI losses. �Hypoglycemia from decreased p.o. intake.
Stool studies pending. �Give bicarb push. �Clear liquid diet.
Sinus CT pending.
[2024-08-27 17:36] LABS: Glucose - Point of Care 144 mg/dl (70-99)
[2024-08-27 18:37] VITALS: BP 111/71; BMI 25.6
[2024-08-27] MEDS: SODIUM BICARBONATE 50 MEQ IV (18:47)
--- NOTE | 2024-08-27 19:12 | PTCARENOTE ---
Pt arrived from ED at 1830. Pt walked from stretcher to room. Pt connected to NS at 80ml/hr as ordered. Assessment completed and pt oriented to room. Pt has no current complaints. Plan of care ongoing.
[2024-08-27] MEDS: NEURONTIN 300 MG PO (20:17)
[2024-08-27 21:20] LABS: Glucose - Point of Care 75 mg/dl (70-99)
[2024-08-27 23:10] VITALS: BP 122/73
--- NOTE | 2024-08-28 04:32 | DOWNTIME ---
Addendum entered by Haley Francois RN 08/28/24 14:12:
Correction to downtime 08/28/2024 from 0100 to 08/28/24 at 0415.
Original Note:
There was a [employer] Client Tax Examining Technician Downtime on 08/27/2024 from 0100 to 08/28/2024 at 0415. Downtime documentation of patient's care, including medication administrations, has been reconciled in the electronic record per guidelines. Refer to the
patient's paper chart under the miscellaneous tab to see printed paper medication records and downtime forms.
[2024-08-28] MEDS: NSS 1000 IV (05:48)
[2024-08-28 06:09] LABS: Glucose - Point of Care 78 mg/dl (70-99)
[2024-08-28 06:35] LABS: Blood Urea Nitrogen 4 mg/dl (7-17); Calcium 8.3 mg/dl (8.4-10.2); Carbon Dioxide 18 mmol/L (22-30); Chloride 114 mmol/L (98-107); Estimated Creatinine Clearance 110 ml/min; Glucose 75 mg/dl (70-99); Potassium 3.7 mmol/L (3.5-5.1); Sodium 137 mmol/L (135-145); eGFR > 60.00
[2024-08-28 07:00] VITALS: BP 107/70
--- NOTE | 2024-08-28 07:06 | W.PN.HOSP.TC ---
Today's Communication/Plan
-
Discharge today
Assessment / Plan
Assessment / Plan
Physical Exam
General: Well Developed, Well Nourished and No Apparent Distress
HEENT: Normocephalic, Moist mucous membranes and Atraumatic
Respiratory: Clear to Auscultation Bilaterally
Cardiac: S1/S2 and Regular Rhythm; No Murmur or Rub
GI: Soft, Non Tender, Non Distended and Normal Bowel Sounds
Musculoskeletal: No Cyanosis and No Edema
Skin: Warm. Dry.
Neuro: AAO x 3 and Nonfocal/grossly intact
Psych: Calm
Assessment/Plan
29-year-old female past medical history of ITP, chronic sinusitis, migraines, GERD, psoriasis, chronic diarrhea from significant antibiotics recently for sinusitis presented with vomiting since 2 days prior to presentation and bilateral lower
abdominal pain. No fever or chills. Also with chronic right facial pain. Patient was initially dizzy here and had a blood sugar of 62. She was given dextrose. Labs showed a bicarb of [address] abdomen pelvis showed
likely small partially ruptured right adnexal/ovarian cyst with small volume free fluid in the right adnexa and right cul-de-sac. Patient with likely viral gastroenteritis with metabolic acidosis from GI losses. Hypoglycemia from decreased p.o.
intake.
#Hypoglycemia secondary to poor oral intake/n/v - RESOLVED
-RESOLVED
-Continue to monitor
-Upgrade diet to regular
#Intractable vomiting/abdominal pain unclear cause likely gastroenteritis - RESOLVED
#Chronic diarrhea - RESOLVED
-CT abdomen pelvis noted with ovarian ruptured right adnexal/ovarian cyst
#Metabolic acidosis - RESOLVED - likely due to GI losses/dehydration
-CO2 15, improved
-Fluids continued for hydration
-bicarb push in ER
#Right facial swelling - IMPROVED
#History of recent sinusitis
-CT sinuses showed moderate left nasal septal deviation
-last use of antibiotics was in June
#Likely small partially ruptured right adnexal/ovarian cyst with small volume free fluid in the right adnexa and right side of cul-de-sac
-Asked gynecology to evaluate given patient's presentation with abdominal pain, appreciate gynecology
-Per gynecology, no concerns from their standpoint, and patient can be discharged from their standpoint
-Follow-up with motion picture camera lens technician at [facility]
#History of ITP
#migraines
#History of psoriasis
#DVT prophylaxis
-scd
#CODE status
-full code
More than 30 minutes spent in discharge including
Final examination of the patient
Summarizing hospital stay
Instructions for continuing care to all relevant caregivers
Preparation of discharge records, prescriptions, and referral forms
Total time spent (in minutes): 36
Anticipated Discharge: Today
Subjective/Interval History
-
Date of Service: August 28, 2024
Patient was seen and examined. She reported that her abdominal pain, nausea, vomiting and diarrhea have all resolved. She reported feeling well and would like to be discharged today.
Objective Data
-
Labs:
Laboratory Results
08/28/24
05:40
Sodium 137
Potassium 3.7
Chloride 114 H
Carbon Dioxide 18 L
BUN 4 L
Creatinine 0.5 L
Glucose 75
Calcium 8.3 L
Vital Signs:
Vital Signs
Temp Pulse Resp BP Pulse Ox
98.3 F 91 18 122/73 98
08/27/24 23:10 08/27/24 23:10 08/27/24 23:10 08/27/24 23:10 08/27/24 23:10
[2024-08-28] MEDS: FEOSOL 325 MG PO (07:41)
[2024-08-28] MEDS: NEURONTIN 300 MG PO (07:41)
[2024-08-28] MEDS: PROTONIX 40 MG PO (07:41)
[2024-08-28] MEDS: LR 1000 IV (07:41)
[2024-08-28 08:18] LABS: Glucose - Point of Care 82 mg/dl (70-99)
[2024-08-28 08:18] LABS: Glucose - Point of Care 63 mg/dl (70-99)
[2024-08-28 08:19] LABS: Glucose - Point of Care 81 mg/dl (70-99)
[2024-08-28 09:52] LABS: Glucose - Point of Care 85 mg/dl (70-99)
[2024-08-28] MEDS: VITAMIN D3 (cholecalciferol) 50 MCG PO (12:39)
[2024-08-28 12:55] LABS: Hematocrit 30.2 % (37.0-47.0); Hemoglobin 11.1 g/dL (12.0-16.0); Mean Corp Hgb Conc. 36.8 g/dL (33.0-37.0); Mean Platelet Volume 9.1 fL (7.4-10.4); Platelet Count 266 10^3/uL (130-400); Red Blood Cell Count 3.47 10^6/uL (4.20-5.40); Red Cell Dist. Width 11.9 % (11.5-14.5)
[2024-08-28 13:17] LABS: Blood Urea Nitrogen < 2 mg/dl (7-17); Calcium 8.7 mg/dl (8.4-10.2); Carbon Dioxide 22 mmol/L (22-30); Chloride 111 mmol/L (98-107); Estimated Creatinine Clearance 110 ml/min; Glucose 93 mg/dl (70-99); Potassium 3.9 mmol/L (3.5-5.1); Sodium 140 mmol/L (135-145); eGFR > 60.00
[2024-08-28 14:40] VITALS: BP 114/58
--- NOTE | 2024-08-28 14:43 | CM ---
ROSEMARY met with Brian and her grandmother at bedside to complete IA.
Brian lives with her grandmother, 3 dogs and a cat.
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
Plan: Discharge to home with no needs.
[2024-08-28 14:57] LABS: Glucose - Point of Care 99 mg/dl (70-99)
--- NOTE | 2024-08-28 14:59 | CON.MD ---
Consultation - Medical
-
29-year-old admitted to the hospital due to 2-day history of vomiting and bilateral lower abdominal pain. Diagnosis was felt to be of acute viral gastroenteritis. CT abdomen/pelvis was performed due to abdominal pain and demonstrated 'likely small
partially ruptured right adnexal/ovarian cyst with small volume free fluid in the right adnexa and right side of the cul-de-sac.' Consult was recommended from [facility] to comment on this finding.
Patient reports that she has a history of bilateral lower quadrant discomfort off and on. This is not a new symptom for her. Her abdominal discomfort has resolved/markedly improved since admission. Denies any [facility] concerns.
Periods are regular. She follows with supervisor at [facility].
PMH: ITP, migraine headaches, GERD, anemia
PSH: Oral surgery
Allergy: Sulfa (hives), grape flavor (hives)
Medications: Vitamin D, iron, gabapentin 300 mg twice daily, pantoprazole 40 mg p.o. daily, sumatriptan succinate 25 mg as needed for headache daily
Social history: Denies tobacco, alcohol, recreational drug use. Denies vaping.
Family history: Noncontributory
Review of systems does not add
Physical exam:
Blood pressure 107/70 pulse 83 respirations 18 temperature 98.3
Appearance: Healthy female, well-nourished, no acute distress
Heart: Regular rate
Pulmonary: Normal respiratory rate, nonlabored breathing
Abdomen: Soft ND NT
Pelvic exam was declined by patient
Labs:
WBC 5.0> 11.1/30.2<266
Beta-hCG negative
Imaging: Abdomen: Limited evaluation of intestinal tract without oral contrast. No evidence of intestinal obstruction free air or intestinal air-fluid levels. Small tubular structure likely representing unremarkable appendix. Liver normal in
size. At least 3 subcentimeter low-attenuation right lobe hepatic lesions too small to characterize. No focal abnormality of mildly contracted gallbladder. No biliary tract dilatation. No significant focal abnormality of the pancreas, adrenal
glands, spleen or kidneys. No retroperitoneal lymphadenopathy.
Pelvis: Urinary bladder is incompletely distended without gross focal intrinsic abnormality. There is a likely small partially ruptured right adnexal/ovarian cyst with small volume free fluid in the right adnexa and right side of the cul-de-sac.
There is no significant pelvic lymphadenopathy.
Impression:
1. Nonspecific abdominal pain-not severe. Symptoms have improved since admission.
2. Probable ruptured right adnexal/ovarian cyst-patient is asymptomatic now
Plan:
No intervention needed from [facility] standpoint. She is asymptomatic presently. Recommend that she follow-up with her primary gynecologic provider at [facility] for follow-up. From [facility] standpoint, patient stable.
History of migraine headaches.
Time spent for consultation 30 minutes.
Consultation
-
Date/Time Consultation Requested: 08/28/24 07:12
Date/Time Consultation Performed: 08/28/24 13:00
Requesting Provider: Jt Young MD
Performing Provider: jennifer Vidal DO
Reason for Consultation: ruptured adnexal cyst
== END 2024-08-28 15:26 | disposition home or self-care (01) | DRG 392 ==
LOC: 3 WEST ACU 17:19
PROVIDERS: Physician Assistant; Registered Nurse; ADMITTING PHYSICIAN Hospitalist; ATTENDING PHYSICIAN Hospitalist; CONSULT PHYSICIAN Obstetrics & Gynecology; EMERGENCY PHYSICIAN Emergency Medicine; FAMILY PHYSICIAN Family Medicine
DX: A08.4 Viral intestinal infection, unspecified (principal); E87.20 Acidosis, unspecified; D69.3 Immune thrombocytopenic purpura; K21.9 Gastro-esophageal reflux disease without esophagitis; L40.9 Psoriasis, unspecified; G43.909 Migraine, unspecified, not intractable, without status migrainosus; N83.201 Unspecified ovarian cyst, right side; E86.0 Dehydration; Z88.2 Allergy status to sulfonamides
CPT/HCPCS: 70486; 74177; 80048; 80053; 82962; 83690; 84703; 85025; 85027; 96361; 96365; 96366; 96375; 99285; Q9967